=== PATIENT | male | born 2005 | race Caucasian/White ===

== ENCOUNTER 2025-01-06 11:33 | Emergency (ER) | payer BC, SELFPAY ==
[~2025-01-06] VITALS: Ht 193 cm; Wt 84.7 kg
[2025-01-06 11:51] VITALS: BP 146/49; PULSE 54; RESP 18; TEMP 97.8; O2SAT 98
[2025-01-07] MEDS ORDERED: [UNRECOGNIZED DRUG - CODE] TD (11:58)
== END 2025-01-06 16:14 | disposition left against medical advice (07) ==
LOC: ER 11:34
DX: M54.9 Dorsalgia, unspecified (principal); V89.2XXA Person injured in unspecified motor-vehicle accident, traffic, initial encounter; Y93.89 Activity, other specified; Y92.89 Other specified places as the place of occurrence of the external cause; Y99.8 Other external cause status; Z53.21 Procedure and treatment not carried out due to patient leaving prior to being seen by health care provider

== ENCOUNTER 2025-01-07 10:20 | Emergency (ER) | payer BC ==
[~2025-01-07] VITALS: Ht 193 cm; Wt 77.3 kg
[2025-01-07] MEDS ORDERED: [UNRECOGNIZED DRUG - CODE] TD (11:58)
[2025-01-07 12:13] VITALS: BP 122/68; PULSE 78; RESP 18; TEMP 98.5; O2SAT 98
== END 2025-01-07 12:15 | disposition home or self-care (01) ==
LOC: ER 10:20
DX: S06.0X0A Concussion without loss of consciousness, initial encounter (principal); M54.59 Other low back pain; Z79.899 Other long term (current) drug therapy; V49.9XXA Car occupant (driver) (passenger) injured in unspecified traffic accident, initial encounter; Y93.89 Activity, other specified; Y92.89 Other specified places as the place of occurrence of the external cause; Y99.8 Other external cause status
CPT/HCPCS: 99282